=== PATIENT | female | born 1965 ===

== ENCOUNTER 2024-11-22 22:20 | Inpatient (IN) | payer MEDICAID ==
[~2024-11-22] VITALS: Ht 160 cm; Wt 67.6 kg
[2024-11-22 23:02] LABS: COVID AG,FIA SOURCE NASAL SWAB
[2024-11-22] MEDS ORDERED: LORazepam 2 MG/ML VIAL ONE (23:05)
[2024-11-22] MEDS: LORazepam 2 MG/ML VIAL IM ONE (23:17)
[2024-11-22 23:27] LABS: SARS-COV2 (COVID) ANTIGEN,FIA Negative (Negative)
[2024-11-22 23:37] LABS: PLATELET COUNT (AUTO) 377 K/uL (150-450); RED BLOOD CELL COUNT(AUTO) 4.28 MIL/uL (4.00-5.20); RED CELL DISTRIBUTION WIDTH 14.7 % (11.5-14.5); WHITE BLOOD COUNT (AUTO) 12.3 K/uL (4.5-11.0)
[2024-11-22 23:42] LABS: ALCOHOL, BLOOD (SERUM) 273.0 mg/dL (0-10); CALCIUM, TOTAL 8.2 mg/dL (8.8-10.5); CREATININE 0.43 mg/dL (0.60-1.30); GLOMERULAR FILTR. RATE CALC > 60 mL/min (>60); GLUCOSE,RANDOM 98 mg/dL (70-110); SODIUM SERUM 144 mmol/L (136-145); UREA NITROGEN, BLOOD 8 mg/dL (7-18)
[2024-11-22 23:47] LABS: ASPARTATE AMINOTRANSFERASE 19.0 U/L (15-37); TOTAL PROTEIN, SERUM 7.3 g/dL (6.4-8.2)
[2024-11-23] VITALS (9 sets, daily range): BP systolic 114–133; BP diastolic 67–87; PULSE 65–97; RESP 14–18; TEMP 97.3–98.8; O2SAT 93–97
[2024-11-23] MEDS: POTASSIUM CHLORIDE 20 MEQ ER TABLET PO ONE (07:40)
[2024-11-23] MEDS: CYANOCOBALAMIN 1,000 MCG/ML VIAL IM ONE (11:15)
[2024-11-23] MEDS: MULTIVITAMINS WITH MINERALS, THERAPEUTIC TABLET PO SCH (14:44)
[2024-11-23] MEDS: FOLIC ACID 1 MG TABLET PO SCH (14:45)
[2024-11-23] MEDS: THIAMINE 100 MG TABLET PO SCH (17:00)
[2024-11-23] MEDS ORDERED: ALBUTEROL SULFATE HFA 90 MCG/PUFF 8 GM INHALER IH PRN (21:15)
[2024-11-23] MEDS ORDERED: PETROLATUM,WHITE 28 GM JELLY TP PRN (21:15)
[2024-11-23] MEDS ORDERED: MAGNESIUM HYDROXIDE SUSPENSION 30 ML UDCUP PO PRN (21:15)
[2024-11-23] MEDS ORDERED: GuaiFENesin/D-METHORPHAN [SUGAR-FREE] 200-20MG/10 ML SYRUP UDCUP PO PRN (21:15)
[2024-11-23] MEDS ORDERED: IBUPROFEN 400 MG TABLET PO PRN (21:15)
[2024-11-23] MEDS ORDERED: LOPERAMIDE HCL 2 MG CAPSULE PO PRN (21:15)
[2024-11-23] MEDS ORDERED: DOCUSATE SODIUM 100 MG CAPSULE PO PRN (21:15)
[2024-11-23] MEDS ORDERED: ONDANSETRON 4 MG TABLET PO PRN (21:15)
[2024-11-23] MEDS ORDERED: MAG HYDROX/ALUMINUM HYD/SIMETH ES 30 ML SUSPENSION UDCUP PO PRN (21:15)
[2024-11-24] VITALS (7 sets, daily range): BP systolic 121–130; BP diastolic 72–89; PULSE 69–94; RESP 16–18; TEMP 96.8–98.6; O2SAT 97–99
[2024-11-24 08:26] LABS: PLATELET COUNT (AUTO) 315 K/uL (150-450); RED BLOOD CELL COUNT(AUTO) 4.15 MIL/uL (4.00-5.20); RED CELL DISTRIBUTION WIDTH 14.5 % (11.5-14.5); WHITE BLOOD COUNT (AUTO) 10.5 K/uL (4.5-11.0)
[2024-11-24 09:08] LABS: ASPARTATE AMINOTRANSFERASE 29 U/L (15-37); CALCIUM, TOTAL 8.5 mg/dL (8.8-10.5); CHOL/HDL RATIO 2.2 (3.9-5.7); CREATININE 0.38 mg/dL (0.60-1.30); GLOMERULAR FILTR. RATE CALC > 60 mL/min (>60); GLUCOSE,RANDOM 80 mg/dL (70-110); LDL CHOL (CALC.) 63 mg/dL (0-130); SODIUM SERUM 144 mmol/L (136-145); TOTAL PROTEIN, SERUM 6.8 g/dL (6.4-8.2); UREA NITROGEN, BLOOD 12 mg/dL (7-18)
[2024-11-25 09:37] VITALS: BP 119/88; PULSE 100; RESP 16; TEMP 98.8; O2SAT 100
[2024-11-25 14:05] VITALS: BP 116/68; PULSE 78; RESP 14; TEMP 98.5; O2SAT 99
[2024-11-25 20:17] VITALS: BP 108/90; PULSE 76; RESP 16; TEMP 97.7; O2SAT 96
[2024-11-25 22:37] VITALS: BP 119/78; PULSE 78; RESP 18; TEMP 97.5; O2SAT 96
[2024-11-26 08:32] VITALS: BP 107/77; PULSE 100; RESP 16; TEMP 97.6; O2SAT 97
[2024-11-26 11:17] VITALS: BP 107/77; PULSE 100; RESP 16; TEMP 97.6; O2SAT 97
[2024-11-26] MEDS: CYANOCOBALAMIN 1,000 MCG/ML VIAL IM ONE (19:31)
[2024-11-26 21:27] VITALS: BP 121/78; PULSE 87; RESP 17; TEMP 98.2; O2SAT 100
[2024-11-27 08:21] VITALS: BP 115/87; PULSE 95; RESP 16; TEMP 98.1; O2SAT 98
[2024-11-27 08:23] VITALS: BP 109/79; PULSE 100; RESP 18; TEMP 97.9; O2SAT 98
[2024-11-27 08:32] VITALS: BP 115/87; PULSE 95; RESP 16; TEMP 98.1; O2SAT 98
[2024-11-27] MEDS: NICOTINE 14 MG/24 HOUR PATCH TD PRN (16:34)
[2024-11-27 20:19] VITALS: BP 108/82; PULSE 98; RESP 18; TEMP 97.9; O2SAT 99
[2024-11-27 21:15] VITALS: RESP 17
[2024-11-28 08:16] VITALS: BP 106/83; PULSE 89; RESP 16; TEMP 97.9; O2SAT 98
[2024-11-28 09:48] VITALS: BP 106/83; PULSE 89; RESP 16; TEMP 97.9
[2024-11-28 20:16] VITALS: BP 113/76; PULSE 98; RESP 18; TEMP 97.3; O2SAT 98
[2024-11-28 20:26] VITALS: BP 113/76; PULSE 98; RESP 18; TEMP 97.3; O2SAT 98
[2024-11-29] MEDS: ESCITALOPRAM OXALATE 10 MG TABLET PO SCH (08:22)
[2024-11-29 08:23] VITALS: BP 105/72; PULSE 85; RESP 16; TEMP 97.8; O2SAT 100
[2024-11-29 20:03] VITALS: BP 100/71; PULSE 83; RESP 18; TEMP 97.6; O2SAT 98
[2024-11-30] MEDS: SERTRALINE HCL 50 MG TABLET PO SCH (08:14)
[2024-11-30 08:17] VITALS: BP 114/76; PULSE 79; RESP 16; TEMP 97.9; O2SAT 98
[2024-11-30 15:36] VITALS: RESP 18
[2024-11-30] MEDS: ACETAMINOPHEN 325 MG TABLET PO PRN (15:36)
[2024-11-30 16:40] VITALS: RESP 16
[2024-11-30] MEDS: NICOTINE 21 MG/24 HOUR PATCH TD PRN (17:08)
[2024-11-30 20:43] VITALS: BP 120/70; PULSE 72; RESP 16; TEMP 97.3; O2SAT 98
[2024-11-30 21:47] VITALS: BP 118/68; PULSE 68; RESP 18; TEMP 98.2; O2SAT 96
[2024-11-30 22:47] VITALS: RESP 18
[2024-11-30] MEDS: ZOLPIDEM TARTRATE 10 MG TABLET PO PRN (22:57)
[2024-12-01 08:11] VITALS: BP 121/90; PULSE 99; RESP 18; TEMP 98.4; O2SAT 98
[2024-12-01] MEDS ORDERED: SERT-439 PO (08:55)
== END 2024-12-01 13:34 | disposition home or self-care (01) | DRG 751 ==
LOC: EMS 22:20 → B3A 11-23 08:42
PROVIDERS: ADMIT Psychiatry & Neurology Psychiatry; ATTEND Psychiatry & Neurology Psychiatry
PROC: GZHZZZZ Group Psychotherapy (ICD-10-PCS; principal; 2024-11-23)
DX: F33.2 Major depressive disorder, recurrent severe without psychotic features (principal); R45.851 Suicidal ideations; D72.829 Elevated white blood cell count, unspecified; E87.6 Hypokalemia; S60.211A Contusion of right wrist, initial encounter; F10.229 Alcohol dependence with intoxication, unspecified; I10 Essential (primary) hypertension; S60.212A Contusion of left wrist, initial encounter; X58.XXXA Exposure to other specified factors, initial encounter; Y93.89 Activity, other specified; Y92.89 Other specified places as the place of occurrence of the external cause; Y99.8 Other external cause status; Y90.8 Blood alcohol level of 240 mg/100 ml or more; Z79.899 Other long term (current) drug therapy; F41.9 Anxiety disorder, unspecified
CPT/HCPCS: 80048; 80053; 80061; 80076; 83036; 84436; 84443; 84703; 85025; 96372; 99291; G0480; J1200; J1630; J2060; J3420